=== PATIENT | female | born 1980 | race Caucasian/White ===

== ENCOUNTER 2017-09-22 16:04 | Emergency (ER) | payer MEDICAID ==
[~2017-09-22] VITALS: Ht 154.9 cm; Wt 69.0 kg
[2017-09-22 16:08] VITALS: Ht 154.9 cm; Wt 69.0 kg
[2017-09-22 18:55] VITALS: BP 123/81
== END 2017-09-22 18:55 | disposition short-term general hospital (02) ==
LOC: ED 16:04
DX: O26.892 Other specified pregnancy related conditions, second trimester (principal); R10.11 Right upper quadrant pain; Z3A.24 24 weeks gestation of pregnancy
CPT/HCPCS: Q0092